=== PATIENT | male | born 1950 | race Caucasian/White ===

== ENCOUNTER 2020-02-12 07:06 | Day surgery (SDC) | payer MEDICARE, BC ==
[2020-02-11 10:46] LABS: BASOPHILS % (AUTO) 0.8 % (0-1); EOSINOPHILS # (AUTO) 0.2 X10'3 (0-0.9); EOSINOPHILS % (AUTO) 3.3 % (0-6); HEMATOCRIT 46.9 % (42.0-52.0); HEMOGLOBIN 15.8 g/dl (14.0-17.9); LYMPHOCYTES # (AUTO) 2.2 X10'3 (1.1-4.8); LYMPHOCYTES % (AUTO) 38.7 % (21-51); MEAN CORPUSCULAR HEMOGLOBIN 31.2 PG (27.0-31.0); MEAN CORPUSCULAR HGB CONC 33.8 g/dL (33.0-36.5); MEAN CORPUSCULAR VOLUME 92.3 FL (78-98); MEAN PLATELET VOLUME 7.4 FL (7.4-10.4); MONOCYTES # (AUTO) 0.3 X10'3 (0-0.9); MONOCYTES % (AUTO) 5.9 % (2-12); NEUTROPHILS % (AUTO) 51.3 % (42-75); PLATELET COUNT 181 X10'3 (140-440); RED BLOOD COUNT 5.08 X10'6 (4.70-6.10); RED CELL DISTRIBUTION WIDTH 14.7 % (11.5-14.5); WHITE BLOOD COUNT 5.8 X10'3 (4.5-11.0)
[2020-02-11 10:56] LABS: ALBUMIN 3.8 G/DL (3.4-5.0); ANION GAP 7 (8-16); BLOOD UREA NITROGEN 14 MG/DL (7-18); BUN/CREATININE RATIO 10.8 (5.4-32.0); CALCIUM 8.6 MG/DL (8.5-10.1); CHLORIDE 109 MMOL/L (99-107); GLUCOSE 105 MG/DL (70-104); POTASSIUM 4.2 MMOL/L (3.5-5.1); SODIUM 143 MMOL/L (135-145); TOTAL CARBON DIOXIDE 26.9 MMOL/L (24-32); eGFR 54 ML/MIN
[2020-02-12] VITALS (17 sets, daily range): BP systolic 119–159; BP diastolic 67–98
[~2020-02-12] VITALS: Ht 188 cm; Wt 111.9 kg
[2020-02-12] MEDS ORDERED: LORazepam 0.5 MG tablet PO ONE (07:40)
[2020-02-12] MEDS ORDERED: atropine 0.1mg/ml 10ml syringe IV ONE (07:40)
[2020-02-12] MEDS ORDERED: MIDAZolam 1mg/ml 10ml vial IV ONE (07:40)
[2020-02-12] MEDS ORDERED: normal saline 1000ml 1,000 ML IV SCH (07:40)
[2020-02-12] MEDS ORDERED: morphine 10mg/ml inj. IV ONE (07:40)
[2020-02-12] MEDS ORDERED: BENA10TA74 PO (08:36)
[2020-02-12] MEDS ORDERED: OMEP40CA13 PO (08:36)
[2020-02-12] MEDS ORDERED: FLEC50TA28 PO (08:36)
[2020-02-12] MEDS ORDERED: APIX5TAB3 PO (08:36)
[2020-02-12] MEDS ORDERED: DILT120C19 PO (08:36)
== END 2020-02-12 11:30 | disposition home or self-care (01) ==
LOC: SSTAY O 07:06
PROVIDERS: ATTEND Internal Medicine Cardiovascular Disease
DX: I48.19 Other persistent atrial fibrillation (principal); I10 Essential (primary) hypertension; E78.5 Hyperlipidemia, unspecified; K21.9 Gastro-esophageal reflux disease without esophagitis; N40.0 Benign prostatic hyperplasia without lower urinary tract symptoms; Z98.890 Other specified postprocedural states; Z79.899 Other long term (current) drug therapy; Z87.891 Personal history of nicotine dependence; Z88.5 Allergy status to narcotic agent; Z88.0 Allergy status to penicillin; Z83.3 Family history of diabetes mellitus
CPT/HCPCS: 36415; 80048; 85025; 85610; 92960; 93005; 94760; J0461; J2250; J2270; J7030

== ENCOUNTER 2020-02-14 15:24 | Emergency (ER) | payer MEDICARE, BC ==
[~2020-02-14] VITALS: Ht 190.5 cm; Wt 111.4 kg
[~2020-02-14 15:24] MED LIST: APIX5TAB3 PO; BENA10TA74 PO; DILT120C19 PO; FLEC50TA28 PO; OMEP40CA13 PO
[2020-02-14 16:19] LABS: EOSINOPHILS # (AUTO) 0.2 X10'3 (0-0.9); HEMATOCRIT 47.5 % (42.0-52.0); HEMOGLOBIN 16.3 g/dl (14.0-17.9); MEAN CORPUSCULAR HGB CONC 34.3 g/dL (33.0-36.5); MONOCYTES # (AUTO) 0.4 X10'3 (0-0.9); NEUTROPHILS # (AUTO) 2.8 X10'3 (1.8-7.7); RED CELL DISTRIBUTION WIDTH 14.4 % (11.5-14.5); WHITE BLOOD COUNT 5.4 X10'3 (4.5-11.0)
[2020-02-14 16:20] LABS: BASOPHILS % (AUTO) 0.7 % (0-1); EOSINOPHILS % (AUTO) 3.9 % (0-6); LYMPHOCYTES % (AUTO) 36.2 % (21-51); MEAN CORPUSCULAR HEMOGLOBIN 31.8 PG (27.0-31.0); MEAN CORPUSCULAR VOLUME 92.8 FL (78-98); MEAN PLATELET VOLUME 7.3 FL (7.4-10.4); NEUTROPHILS % (AUTO) 52.2 % (42-75); PLATELET COUNT 161 X10'3 (140-440); RED BLOOD COUNT 5.12 X10'6 (4.70-6.10)
--- NOTE | 2020-02-14 16:30 | NUR ---
Pt states he had synchronized cardioversion two days ago.
[2020-02-14 16:38] LABS: ALANINE AMINOTRANSFERASE 23 U/L (12-78); ALBUMIN/GLOBULIN RATIO 1.1 (1.1-1.5); ALKALINE PHOSPHATASE 115 IU/L (46-116); ANION GAP 9 (8-16); ASPARTATE AMINO TRANSFERASE 18 U/L (10-37); BILIRUBIN,TOTAL 0.9 MG/DL (0.1-1.0); BLOOD UREA NITROGEN 10 MG/DL (7-18); BUN/CREATININE RATIO 8.7 (5.4-32.0); CALCIUM 8.9 MG/DL (8.5-10.1); CHLORIDE 109 MMOL/L (99-107); CREATININE 1.15 MG/DL (0.60-1.10); GLUCOSE 106 MG/DL (70-104); POTASSIUM 3.9 MMOL/L (3.5-5.1); SODIUM 144 MMOL/L (135-145); TOTAL PROTEIN 7.8 G/DL (6.4-8.2); eGFR 63 ML/MIN
[2020-02-14] MEDS ORDERED: ketorolac tromethamine 15mg/ml inj. IV ONE (19:25)
[2020-02-14 19:52] VITALS: BP 168/87
== END 2020-02-14 19:53 | disposition home or self-care (01) ==
LOC: ER 15:25
DX: R06.02 Shortness of breath (principal); R07.89 Other chest pain; I48.91 Unspecified atrial fibrillation; Z88.0 Allergy status to penicillin; Z88.5 Allergy status to narcotic agent; Z79.82 Long term (current) use of aspirin; Z79.899 Other long term (current) drug therapy
CPT/HCPCS: 36415; 71045; 80053; 83880; 84484; 85025; 93005; 99285

== ENCOUNTER 2020-03-30 06:14 | Day surgery (SDC) | payer MEDICARE, BC ==
[2020-03-29 10:15] LABS: ALBUMIN 3.5 G/DL (3.4-5.0); ANION GAP 3 (8-16); BLOOD UREA NITROGEN 10 MG/DL (7-18); BUN/CREATININE RATIO 11.4 (5.4-32.0); CALCIUM 8.2 MG/DL (8.5-10.1); CHLORIDE 108 MMOL/L (99-107); CREATININE 0.88 MG/DL (0.60-1.10); GLUCOSE 117 MG/DL (70-104); POTASSIUM 3.9 MMOL/L (3.5-5.1); SODIUM 140 MMOL/L (135-145); TOTAL CARBON DIOXIDE 28.8 MMOL/L (24-32); eGFR 85 ML/MIN
[2020-03-29 10:16] LABS: BASOPHILS # (AUTO) 0.1 X10'3 (0-0.2); BASOPHILS % (AUTO) 1.1 % (0-1); EOSINOPHILS # (AUTO) 0.2 X10'3 (0-0.9); HEMATOCRIT 44.8 % (42.0-52.0); HEMOGLOBIN 15.4 g/dl (14.0-17.9); LYMPHOCYTES # (AUTO) 1.9 X10'3 (1.1-4.8); LYMPHOCYTES % (AUTO) 40.4 % (21-51); MEAN CORPUSCULAR HEMOGLOBIN 31.3 PG (27.0-31.0); MEAN CORPUSCULAR HGB CONC 34.4 g/dL (33.0-36.5); MEAN PLATELET VOLUME 7.6 FL (7.4-10.4); MONOCYTES # (AUTO) 0.3 X10'3 (0-0.9); MONOCYTES % (AUTO) 6.6 % (2-12); NEUTROPHILS # (AUTO) 2.3 X10'3 (1.8-7.7); NEUTROPHILS % (AUTO) 47.9 % (42-75); PLATELET COUNT 165 X10'3 (140-440); RED BLOOD COUNT 4.92 X10'6 (4.70-6.10); RED CELL DISTRIBUTION WIDTH 13.9 % (11.5-14.5); WHITE BLOOD COUNT 4.7 X10'3 (4.5-11.0)
[2020-03-29 10:18] LABS: PARTIAL THROMBOPLASTIN TIME 30 SECONDS (22-32)
[2020-03-30] VITALS (17 sets, daily range): BP systolic 145–193; BP diastolic 82–120
[~2020-03-30] VITALS: Ht 190.5 cm; Wt 113.4 kg
[2020-03-30] MEDS ORDERED: normal saline 1,000 ML IV SCH (06:30)
[2020-03-30] MEDS ORDERED: LORazepam 0.5 MG tablet PO PRN (06:30)
[2020-03-30] MEDS ORDERED: diphenhydrAMINE 25mg capsule PO PRN (06:30)
[2020-03-30] MEDS ORDERED: LIDOcaine/PRILOcaine 5gm cream TP ONE (06:30)
[2020-03-30] MEDS ORDERED: CARV3.12 PO (06:31)
[2020-03-30] MEDS ORDERED: verapamil 2.5 mg/ml inj IV ONE (07:36)
[2020-03-30] MEDS ORDERED: fentaNYL/PF 50MCG/1 ML 2ML syringe ONE (07:36)
[2020-03-30] MEDS ORDERED: midazolam 2 mg/2 ml injection ONE (07:36)
[2020-03-30] MEDS ORDERED: nitroGLYCERIN-Tridil 50MG/D5W 250 ML IV ONE (07:37)
[2020-03-30] MEDS ORDERED: iohexol 350MG/ML 100ml bottle IV ONE (07:37)
[2020-03-30] MEDS ORDERED: heparin 1,000unit/ml 10ml vial 10 ML ONE (07:37)
[2020-03-30] MEDS ORDERED: LIDOcaine 1% (10mg/ml)w/preservative injection 20ml MDV ONE (07:37)
[2020-03-30] MEDS ORDERED: iohexol 350 MG/ML 50ML vial IV ONE (07:37)
[2020-03-30] MEDS ORDERED: heparin 25,000 UNIT/250ml bag 250 ML IV ONE (08:44)
[2020-03-30] MEDS ORDERED: iohexol 350 MG/1 ML 200ml bottle ONE (08:44)
[2020-03-30] MEDS ORDERED: clopidogrel 300mg tablet ONE ×2 (09:15→09:17)
[2020-03-30] MEDS ORDERED: heparin 10,000 units/1 ML INJ IV PRN (10:10)
[2020-03-30] MEDS ORDERED: heparin 25,000 UNIT/250ml bag 250 ML IV SCH (10:10)
[2020-03-30] MEDS ORDERED: acetaminophen 325mg tablet PO PRN (10:10)
[2020-03-30] MEDS ORDERED: HYDROcodone/acetaminophen 5mg/325mg tablet PO PRN (10:10)
[2020-03-30] MEDS ORDERED: HYDROcodone/acetaminophen 10/325mg tab PO PRN (10:10)
--- NOTE | 2020-03-30 10:35 | NUR ---
Pt complaint of 8/10 headache pain. Administering medication as ordered. Brought pt a snack and reno-sparks soda. Pt sitting up in bed. VS stable as charted.
--- NOTE | 2020-03-30 10:49 | NUR ---
heparin stopped as ordered.
--- NOTE | 2020-03-30 10:55 | NUR ---
MD at bedside. New order given, medication being administered as ordered.
[2020-03-30] MEDS: hydrALAZINE 20mg/ml inj. IV PRN ×2 (11:07→15:27)
--- NOTE | 2020-03-30 11:30 | NUR ---
Pt complaint of feeling "short of breath", vs stable as documented. Will continue to monitor.
--- NOTE | 2020-03-30 12:30 | NUR ---
Pt states he is still "short of breath" and his "throat feels tight". Called MD, new orders given, medications administered as ordered. Lab to be drawn.
[2020-03-30] MEDS ORDERED: potassium Cl 20 mEq SR tablet PO STA (12:40)
[2020-03-30] MEDS ORDERED: furosemide 20 MG/2 ML vial IV ONE (12:40)
--- NOTE | 2020-03-30 13:15 | NUR ---
Lab at bedside.
--- NOTE | 2020-03-30 13:24 | NUR ---
Emptied 450ml clear yellow urine
[2020-03-30 14:02] LABS: ALBUMIN 3.9 G/DL (3.4-5.0); ANION GAP 11 (8-16); BLOOD UREA NITROGEN 9 MG/DL (7-18); BUN/CREATININE RATIO 11.1 (5.4-32.0); CALCIUM 8.7 MG/DL (8.5-10.1); CHLORIDE 105 MMOL/L (99-107); CREATININE 0.81 MG/DL (0.60-1.10); GLUCOSE 93 MG/DL (70-104); POTASSIUM 4.2 MMOL/L (3.5-5.1); SODIUM 139 MMOL/L (135-145); TOTAL CARBON DIOXIDE 22.8 MMOL/L (24-32); eGFR > 90 ML/MIN
--- NOTE | 2020-03-30 14:03 | NUR ---
Pt vomited 100 ml yellow fluid. Pt vs charted. pt denies cp, still states he is short of breath and states this is "the same as it has been". Will continue to monitor.
[2020-03-30] MEDS ORDERED: ondansetron/PF 4mg/2ml inj ONE (14:19)
--- NOTE | 2020-03-30 14:22 | NUR ---
pt complaint of nausea. Zofran being administered per .
[2020-03-30] MEDS ORDERED: ondansetron/PF 4mg/2ml inj IM ONE (14:25)
--- NOTE | 2020-03-30 14:30 | NUR ---
Reported lab results to . New order for nausea given. No other orders given. MD states he will come to hospital to see patient.
--- NOTE | 2020-03-30 14:45 | NUR ---
VSS, pt is resting comfortably, EKG recd by . Addendum: 03/30/20 at 1713 by Kendal Louie RN time of above note is [id number].
--- NOTE | 2020-03-30 14:52 | NUR ---
Pt appears to be resting comfortably, respirations even, eyes closed, vs charted. Will continue to monitor.
--- NOTE | 2020-03-30 15:14 | NUR ---
pt vomited 30ml green liquid.
--- NOTE | 2020-03-30 16:00 | NUR ---
contacted as pt is still feeling SOB with VS 167/105, H-77, R-17, O2-99 on RA, he will come and see pt shortly, notified pt's . Addendum: 03/30/20 at 1711 by Kendal Louie RN pt is on 3L of O2.
--- NOTE | 2020-03-30 16:10 | NUR ---
PT VOMITTED 50ML of greenish fluid, EKD faxed to .
--- NOTE | 2020-03-30 18:35 | NUR ---
pt vomited 15ml of greenish fluid.
--- NOTE | 2020-03-30 18:40 | NUR ---
Patient report given, questions answered & plan of care reviewed with Ben RN, pt will be going to room #312.
[2020-03-30] MEDS ORDERED: ondansetron/PF 4mg/2ml inj IV ONE (18:55)
--- NOTE | 2020-03-30 19:00 | NUR ---
pt transferred to #312, VSS for pt, pt is in no distress at this time, RN at pt's bedside.
[2020-03-30] MEDS ORDERED: normal saline 1000ml 1,000 ML IV ONE (19:15)
[2020-03-30] MEDS ORDERED: hydrALAZINE 20mg/ml inj. IV PRN (19:15)
[2020-03-30] MEDS ORDERED: aspirin 81mg tablet.DR PO ONE (19:15)
[2020-03-30] MEDS: carVEDilol 3.125mg tablet PO SCH (20:14)
[2020-03-31] MEDS ORDERED: ondansetron/PF 4mg/2ml inj IV PRN (00:45)
[2020-03-31 02:00] VITALS: BP 125/81
[2020-03-31 04:05] LABS: BASOPHILS # (AUTO) 0.1 X10'3 (0-0.2); BASOPHILS % (AUTO) 1.3 % (0-1); EOSINOPHILS % (AUTO) 0.1 % (0-6); HEMATOCRIT 45.1 % (42.0-52.0); HEMOGLOBIN 15.8 g/dl (14.0-17.9); LYMPHOCYTES # (AUTO) 1.6 X10'3 (1.1-4.8); LYMPHOCYTES % (AUTO) 19.9 % (21-51); MEAN CORPUSCULAR HEMOGLOBIN 31.5 PG (27.0-31.0); MEAN CORPUSCULAR VOLUME 89.9 FL (78-98); MEAN PLATELET VOLUME 7.1 FL (7.4-10.4); MONOCYTES # (AUTO) 0.4 X10'3 (0-0.9); MONOCYTES % (AUTO) 4.5 % (2-12); NEUTROPHILS # (AUTO) 6.1 X10'3 (1.8-7.7); NEUTROPHILS % (AUTO) 74.2 % (42-75); PLATELET COUNT 188 X10'3 (140-440); RED BLOOD COUNT 5.02 X10'6 (4.70-6.10); RED CELL DISTRIBUTION WIDTH 13.6 % (11.5-14.5); WHITE BLOOD COUNT 8.3 X10'3 (4.5-11.0)
[2020-03-31 06:00] VITALS: BP 132/87
--- NOTE | 2020-03-31 06:07 | NUR ---
Problems reprioritized. Patient report given, questions answered & plan of care reviewed with Nathaly VOGT.
--- NOTE | 2020-03-31 07:31 | NUR ---
Patient in room MED 312. I have received report from salina Contreras and had the opportunity to ask questions and assume patient care.
[2020-03-31] MEDS ORDERED: ASPI-1071 PO (08:00)
[2020-03-31] MEDS ORDERED: EZET10TA6 PO (08:00)
[2020-03-31] MEDS ORDERED: aspirin 81mg tablet.DR PO SCH (08:00)
[2020-03-31] MEDS ORDERED: pantoprazole 40mg Tablet.DR PO SCH (08:00)
[2020-03-31] MEDS ORDERED: apixaban 5mg tablet PO SCH (08:00)
[2020-03-31] MEDS ORDERED: CLOP75TA15 PO (08:00)
[2020-03-31] MEDS ORDERED: lisinopril 10 MG tablet PO SCH (08:00)
[2020-03-31] MEDS ORDERED: PANT40TA4 PO (08:00)
[2020-03-31] MEDS: carVEDilol 3.125mg tablet PO SCH (08:59)
[2020-03-31 10:00] VITALS: BP 120/79
[2020-03-31] MEDS ORDERED: clopidogrel 75mg tablet PO SCH (10:20)
--- NOTE | 2020-03-31 11:30 | NUR ---
REVIEWED ALL DISCHARGE INSTRUCTIONS,INCLUDING F/U APPT WITH DR. ONEILL AND , PRESCRIPTIONS FAXED TO ESTEFANIA @ [facility],INFO SHEETS PROVIDED,sL DC'D L WRIST,SITE CLEAR,PT DC'D VIA W/C WITH ALL BELONGINGS
--- NOTE | 2020-04-01 09:14 | NUR ---
Case Management DC follow up: Spoke with pt via telephone. Status post: angiogram w/stent R radial approach. reports:" doing good, lot of sleeping". pt states no dizziness, slightly unsteady, believes from the medications from procedure. Went over orthostatic hypotension protocol & hydration as a precaution. Denies: acute/continuous cp, emergent SOB, acute general pain, resp distress, N/V, vertigo, sycope episodes, HAMM blurry vision, abd pain/distension, diarrhea, constipation, bladder pain, dysuria, polyuria, hematuria, retention, urgency, unexplained bleeding/bruising,fever. Verbalizes understanding of s/s that would warrant 04-23/ER visit for evaluation. Verbalizes understanding of new Rx asa, plavix, zetia, protonix, why prescribed, resumes current Rx as ordered, denies ase r/t polypharmacy. Acknowledges need to schedule/keep follow up appts w/PCP/Ravi, scheduled. physician assistant/Rahul 04/10/20. Verbalizes compliance w/DC aftercare. Needs met, questions answered at DC, no further questions r/t post status DC at this time.
== END 2020-03-31 11:20 | disposition home or self-care (01) ==
LOC: SSTAY O 06:14 → MED 3N 19:10 → SSTAY O 03-31 11:20
PROVIDERS: ATTEND Internal Medicine Cardiovascular Disease
DX: R06.02 Shortness of breath (principal); I25.10 Atherosclerotic heart disease of native coronary artery without angina pectoris; I10 Essential (primary) hypertension; E78.5 Hyperlipidemia, unspecified; K21.9 Gastro-esophageal reflux disease without esophagitis; N40.0 Benign prostatic hyperplasia without lower urinary tract symptoms; I48.19 Other persistent atrial fibrillation; Z79.899 Other long term (current) drug therapy; Z98.890 Other specified postprocedural states; Z87.891 Personal history of nicotine dependence; Z88.5 Allergy status to narcotic agent; Z88.0 Allergy status to penicillin
CPT/HCPCS: 36415; 80048; 83880; 85025; 85347; 85610; 85730; 93005; 93458; 99152; 99153; C1725; C1751; C1769; C1874; C1894; C9600; J0360; J1644; J1940; J2001; J2250; J2405; J3010; J7030; Q0163; Q9967; A4620; G0378; J3490